=== PATIENT | female | born 1980 | race Caucasian/White ===

== ENCOUNTER 2017-09-21 06:59 | Day surgery (SDC) | payer OTHER ==
[~2017-09-21] VITALS: Ht 175.3 cm; Wt 95.0 kg
[2017-09-21] MEDS ORDERED: PREN1MIS10 (07:20)
[2017-09-21] MEDS ORDERED: VITA500S3 SL (07:20)
[2017-09-21] MEDS ORDERED: SODIUM CHLOR 0.9% 1000 ML INJ 1,000 ML IV SCH (07:45)
[2017-09-21 07:48] VITALS: BP 103/63; PULSE 82; RESP 16; TEMP 98.5; O2SAT 98
[2017-09-21 07:48] LABS: AUTOMATED NEUTROPHIL # 5.3 TH/MM3 (1.8-7.7); BASOPHIL # 0.1 TH/MM3 (0-0.2); BASOPHIL % 1.5 % (0.0-2.0); EOSINOPHIL # 0.2 TH/MM3 (0-0.4); EOSINOPHIL % 2.9 % (0.0-4.0); HEMATOCRIT 39.7 % (35.0-46.0); LYMPH % 21.9 % (9.0-44.0); LYMPHOCYTE # 1.8 TH/MM3 (1.0-4.8); MEAN CELL VOLUME 87.1 FL (80.0-100.0); MEAN CORPUSCULAR HEMOGLOBIN 30.7 PG (27.0-34.0); MEAN CORPUSCULAR HGB CONC 35.2 % (32.0-36.0); MEAN PLATELET VOLUME 8.4 FL (7.0-11.0); MONO % 7.5 % (0.0-8.0); MONOCYTE # 0.6 TH/MM3 (0-0.9); NEUT % 66.2 % (16.0-70.0); PLATELET COUNT 304 TH/MM3 (150-450); RED BLOOD COUNT 4.55 MIL/MM3 (4.00-5.30); RED CELL DISTRIBUTION WIDTH 12.6 % (11.6-17.2); WHITE BLOOD COUNT 8.1 TH/MM3 (4.0-11.0)
[2017-09-21 07:58] LABS: INTERNATIONAL NORMALIZED RATIO 1.1 RATIO; PROTHROMBIN TIME - PATIENT 10.7 SEC (9.8-11.6)
[2017-09-21 08:08] LABS: BICARBONATE 26.7 MEQ/L (21.0-32.0); CREATININE 0.68 MG/DL (0.50-1.00)
--- NOTE | 2017-09-21 09:22 | PD.RAD ---
Post Procedure Progress Note Pre Procedure Diagnosis: (1) Numbness and tingling of left side of face Post Procedure Diagnosis: (1) Numbness and tingling of left side of face Procedure Date: Sep 21, 2017 Supervising Radiologist: Leandro Stark Estimated blood loss: none Anesthesia: Local Plan of Activity Patient to Unit: ROPU Patient Condition: Good Additional Comments: LP completed single puncture at L3/L4 opening pressure 16 22cc of csf collected closing pressure 8.5 Full report to follow See PACS Report for procedural detail/treatment Leandro Stark MD Sep 21, 2017 09:22
[2017-09-21 09:30] VITALS: BP_SYST 109; BP_DIAS 61; BP_DIAS 63; PULSE 76; RESP 16; TEMP 98; O2SAT 98
[2017-09-21 09:59] LABS: TOTAL PROTEIN,CSF 27.2 MG/DL (15.0-45.0)
--- NOTE | 2017-09-21 10:14 | RADRPT ---
EXAM DATE/TIME: 09/21/2017 08:49 [facility] COMPARISON: No previous studies available for comparison. INDICATIONS : Patient presents with left side weakness in need of lumbar puncture. MEDICAL HISTORY : Left side weakness Thyroid Spine injury Trigeminal Neuralgia SURGICAL HISTORY : NA ENCOUNTER: Initial ACUITY: 3 months PAIN SCORE: 0/10 LUMBAR PUNCTURE TIME: 9:11 hours FLUORO TIME: 1.3 minutes IMAGE SERIES: 1 ACCESS LEVEL: L3-4 OPENING PRESSURE: 16 cm of water CLOSING PRESSURE: 8.5 cm of water FLUID: 22 cc of clear CSF was collected and sent to the laboratory for analysis. PROCEDURE : 1. Fluoroscopic guided lumbar puncture. 2. Recording of opening pressure. The risks, benefits and alternatives to the procedure were explained and verbal and written consent w as obtained. The site was prepped in sterile fashion. Full sterile technique was used, including ca p, mask, sterile gloves and gown and a large sterile sheet. Hand hygiene and 2% chlorhexidine and/or betadine/alcohol prep was utilized per protocol for cutaneous antisepsis. The skin and subcutaneous tissues were infiltrated with local anesthetic solution. With fluoroscopic guidance the lumbar thecal sac was punctured at the above level described above and the opening pressure was recorded. The above described fluid was removed without difficulty. The patient tolerated the procedure well and there were no complications. CONCLUSION: Uncomplicated fluoroscopically guided lumbar puncture with pressures as above. Leandro Stark MD on September 21, 2017 at 9:45 Board Certified Radiologist. This report was verified electronically.
[2017-09-21 10:31] LABS: RBC TUBE #1 10 /MM3; SUPERNATE COLOR TUBE #1 CLEAR (CLEAR); WBC TUBE #1 10 /MM3 (0-10)
[2017-09-21 10:34] LABS: CSF LYMPHOCYTES 93 %; CSF MONOCYTES 5 %; CSF NEUTROPHILS 2 %
[2017-09-21 10:35] LABS: RBC TUBE #4 13 /MM3; WBC TUBE #4 8 /MM3 (0-10)
[2017-09-21 10:37] LABS: CSF LYMPHOCYTES 98 %
[2017-09-21 10:38] LABS: CSF MONOCYTES 2 %
[2017-09-21 10:40] LABS: CSF NEUTROPHILS 0 %
[2017-09-21 11:20] VITALS: BP 101/59; PULSE 72; RESP 16; O2SAT 98
[2017-09-22 09:46] LABS: HSV 1,PCR Negative (Negative)
[2017-09-22 10:18] LABS: CMV DNA QUANT BY RAPID PCR Negative (Negative)
[2017-09-23 17:50] LABS: CSF CRYPTOCOCCUS ANTIGEN NOT DETECTED (NEGATIVE)
[2017-09-23 19:51] LABS: VZV PCR RESULT <500 (<500 copies)
[2017-09-24 09:32] LABS: CSF CRYPTOCOCCUS AG CONF ND (NOT DETECTD)
== END 2017-09-21 11:40 | disposition home or self-care (01) ==
LOC: HROP 06:59 → HRIP 07:03 → HROP 11:40
PROVIDERS: ATTEND Psychiatry & Neurology Neurology
DX: G35 Multiple sclerosis (principal)
CPT/HCPCS: 62270; 77003; 80048; 82040; 82042; 82784; 82945; 83873; 83916; 84157; 85025; 85610; 85730; 86403; 86618; 87070; 87205; 87497; 87529; 87799; 88108; 89051

== ENCOUNTER 2017-10-26 07:30 | Day surgery (SDC) | payer OTHER ==
[~2017-10-26] VITALS: Ht 175.3 cm; Wt 95.0 kg
[~2017-10-26 07:30] MED LIST: IBUP1TAB7 PO; PREN1MIS10; TYLE325T PO; VITA500S3 SL; [UNRECOGNIZED DRUG - CODE] IV
[2017-10-26 07:49] VITALS: BP 123/82; PULSE 70; RESP 20; TEMP 97.6; O2SAT 100
[2017-10-26] MEDS ORDERED: PRED2.5T PO (07:56)
[2017-10-26] MEDS ORDERED: SODIUM CHLOR 0.9% 1000 ML INJ 1,000 ML IV SCH (08:15)
[2017-10-26 08:49] LABS: BICARBONATE 29.3 MEQ/L (21.0-32.0); CALCIUM 8.7 MG/DL (8.5-10.1); CREATININE 0.74 MG/DL (0.50-1.00)
[2017-10-26 09:40] VITALS: BP 129/77; PULSE 71; RESP 20; TEMP 97.8; O2SAT 99
[2017-10-26 10:22] LABS: TOTAL PROTEIN,CSF 35.3 MG/DL (15.0-45.0)
--- NOTE | 2017-10-26 10:39 | RADRPT ---
EXAM DATE/TIME: 10/26/2017 09:43 [facility] COMPARISON: No previous studies available for comparison. INDICATIONS : Patient with history of left sided weakness. R/O MS. MEDICAL HISTORY : 1. left sided weakness 2. Spine injury 3. Trigeminal Neuralgia SURGICAL HISTORY : 1. NA ENCOUNTER: Initial ACUITY: 4-6 months PAIN SCORE: 0/10 LUMBAR PUNCTURE TIME: 0931 hours FLUORO TIME: 0.3 minutes IMAGE SERIES: 1 ACCESS LEVEL: L2-3 FLUID: 10 cc of clear CSF was collected and sent to the laboratory for analysis. PROCEDURE : 1. Fluoroscopic guided lumbar puncture. The risks, benefits and alternatives to the procedure were explained and verbal and written consent w as obtained. The site was prepped in sterile fashion. Full sterile technique was used, including ca p, mask, sterile gloves and gown and a large sterile sheet. Hand hygiene and 2% chlorhexidine and/or betadine/alcohol prep was utilized per protocol for cutaneous antisepsis. The skin and subcutaneous tissues were infiltrated with local anesthetic solution. With fluoroscopic guidance the lumbar thecal sac was punctured at the level above. The fluid describ ed above was removed without difficulty. The patient tolerated the procedure well and there were no complications. CONCLUSION: Uncomplicated fluoroscopically guided lumbar puncture. Servando Barbosa MD on October 26, 2017 at 10:37 Board Certified Radiologist. This report was verified electronically.
[2017-10-26 11:30] VITALS: BP 127/78; PULSE 78; RESP 20; O2SAT 99
== END 2017-10-26 11:40 | disposition home or self-care (01) ==
LOC: HROP 07:30 → HRIP 07:33 → HROP 11:40
PROVIDERS: ATTEND Internal Medicine Hematology
DX: R53.1 Weakness (principal); G50.0 Trigeminal neuralgia; D72.820 Lymphocytosis (symptomatic); T14.8XXA Other injury of unspecified body region, initial encounter; E28.2 Polycystic ovarian syndrome; E05.90 Thyrotoxicosis, unspecified without thyrotoxic crisis or storm
CPT/HCPCS: 62270; 77003; 80048; 82945; 84157; 85610; 85730; 88108